=== PATIENT | male | born 1940 | race Caucasian/White ===

== ENCOUNTER 2017-03-19 04:00 | Inpatient (IN) ==
--- NOTE | 2017-03-18 10:48 | EKG Report ---
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
[2017-03-18 10:56] LABS: Apearance,Urine CLEAR (Clear); Bilirubin,Urine Negative (Negative); Blood, Urine Negative (Negative); Glucose,Urine (UA) Negative (Negative); Ketones,Urine Negative (Negative); Mucus,Urine Occasional /LPF (Occasional); Nitrite,Urine Negative (Negative); Protein,Urine Negative; RBC,Urine <1 /HPF (0-4); Urine Color Yellow (Yellow); Urine Specific Gravity 1.016 (1.001-1.035); Urine Urobilinogen < 2.0 EU/DL (0.2-1.0); WBC,Urine 1 /HPF (0-6)
[2017-03-18 10:57] LABS: Basophils # 0.1 10*3/uL (0.0-0.2); Basophils % 0.8 % (0.0-0.8); Eosinophils # 0.2 10*3/uL (0.0-0.87); Eosinophils % 2.3 % (0.00-10.9); Hematocrit 40.1 VOL% (42.0-52.0); Hemoglobin 13.2 GM/DL (14.0-18.0); Immature Granulocytes % 0.3 %; Immature Granulocytes Absolute 0.02 #; Lymphocytes # 1.4 10*3/uL (1.4-4.0); Lymphocytes % 21.9 % (21.2-54.2); Mean Corpuscular HGB Conc 32.9 GM/DL (32-36); Mean Corpuscular Hemoglobin 30 PG (27-34); Mean Corpuscular Volume 89.9 FL (87-102); Mean Platelet Volume 10.1 FL (9.6-12.0); Monocytes # 0.7 10*3/uL (0.11-0.8); Monocytes % 11.3 % (1.7-12.7); Neutrophils # 4.2 10*3/uL (1.4-7.4); Neutrophils % 63.4 % (38.7-73.9); Platelet Count 171 T/CUMM (130-400); Red Blood Count 4.46 MC/CUMM (3.8-5.5); Red Cell Distribution Width 13.5 % (9.3-17.3); White Blood Count 6.6 T/CUMM (4-12)
[2017-03-18 11:25] LABS: PT Patient Result 10.7 SECS; Partial Thromboplastin Time 27.8 SECS (0-40)
[2017-03-18 11:28] LABS: Magnesium 2.2 MG/DL (1.8-2.4); Osmolality,Calculated 284.3 MOS/KG (273-304); Potassium 4.7 MMOL/L (3.5-5.1)
[2017-03-21] MEDS ORDERED: ACETAMINOPHEN INJ 1,000 MG in PREMIX 1 EACH IV ONE (06:00)
[2017-03-21] MEDS ORDERED: BUPIVACAINE LIPOSOMAL 20 ML/266 MG VIAL INFILTRAT ONE (06:00)
[2017-03-21] MEDS ORDERED: CEFUROXIME INJ 1,500 MG in SODIUM CHLORIDE 0.9% 100 ML IV ONE (06:00)
[2017-03-21] MEDS ORDERED: TISSUE ADHESIVE 1 EACH APPLICATOR TOP ONE (06:32)
[2017-03-21] MEDS ORDERED: ACETAMINOPHEN 1,000 MG/100 ML VIAL IV ONE (06:44)
[2017-03-21] MEDS ORDERED: CEFUROXIME 1,500 MG VIAL ONE (06:44)
[2017-03-21] MEDS ORDERED: SODIUM CHLORIDE 0.9% 100 ML IV ONE (06:45)
[2017-03-21] MEDS ORDERED: ETOMIDATE 20 MG/10 ML VIAL IV ONE (07:05)
[2017-03-21] MEDS ORDERED: FUROSEMIDE 20 MG/2 ML VIAL ONE (07:05)
[2017-03-21] MEDS ORDERED: ONDANSETRON 4 MG/2 ML VIAL ONE (07:05)
[2017-03-21] MEDS ORDERED: ROCURONIUM 100 MG/10 ML VIAL IV ONE (07:05)
[2017-03-21] MEDS ORDERED: PHENYLEPHRINE 1 MG/10 ML SYRINGE IV ONE (07:05)
[2017-03-21] MEDS ORDERED: CALCIUM CHLORIDE 1,000 MG/10 ML SYRINGE IV ONE (07:05)
[2017-03-21] MEDS ORDERED: SUGAMMADEX 200 MG/2 ML VIAL IV ONE ×2 (07:05→13:22)
[2017-03-21] MEDS ORDERED: LIDOCAINE 2% 5 ML VIAL ONE (07:05)
[2017-03-21] MEDS: LACTATED RINGERS 1,000 ML IV SCH (07:10)
[2017-03-21 08:38] LABS: Apearance,Urine Slightly Hazy (Clear); Bilirubin,Urine Negative (Negative); Blood, Urine Negative (Negative); Glucose,Urine (UA) Negative (Negative); Hyaline Casts,Urine 11 /LPF (0-3); Ketones,Urine Negative (Negative); Mucus,Urine Many /LPF (Occasional); Nitrite,Urine Negative (Negative); Protein,Urine Negative; RBC,Urine 1 /HPF (0-4); Urine Color Yellow (Yellow); Urine Specific Gravity 1.018 (1.001-1.035); Urine Urobilinogen < 2.0 EU/DL (0.2-1.0); WBC,Urine 2 /HPF (0-6)
[2017-03-21 12:36] LABS: ABG Base Excess -5.8 MMOL/L (-2.5-2.5); ABG HCO3 19.7 MMOL/L (20-26); ABG PCO2 55.6 MM HG (35-48); ABG PH 7.223 (7.35-7.45); ABG TCO2 20.5 MMOL/L (23-27); Glucose Heart Surgery 178 MG/DL (74-106); Hematocrit Heart Surgery 40.8 PERCENT (42-52); Hemoglobin Heart Surgery 13.3 G/DL (14.0-18.0); Potassium Heart/CVR 5.3 MMOL/L (3.5-5.1)
[2017-03-21] MEDS ORDERED: HYDROmorphone 2 MG/1 ML VIAL ONE (14:10)
[2017-03-21] MEDS: HYDROmorphone 2 MG/1 ML VIAL IV PRN ×3 (14:10→14:20)
[2017-03-21] MEDS ORDERED: ONDANSETRON 4 MG/2 ML VIAL IV PRN ×2 (14:14→14:19)
[2017-03-21] MEDS ORDERED: DESFLURANE 1 UNIT/15 MINUTE INH ONE (14:21)
[2017-03-21] MEDS ORDERED: MIDAZOLAM 2 MG/2 ML VIAL ONE (14:21)
[2017-03-21] MEDS ORDERED: fentaNYL 100 MCG/2 ML VIAL ONE (14:22)
[2017-03-21] MEDS ORDERED: SODIUM CHLORIDE 0.9% 1,000 ML IV ONE (14:22)
[2017-03-21] MEDS ORDERED: LACTATED RINGERS 2,000 ML IV ONE (14:22)
[2017-03-21] MEDS ORDERED: LACTATED RINGERS 1,000 ML IV SCH (14:30)
[2017-03-21] MEDS ORDERED: hydrALAZINE 20 MG/1 ML VIAL ONE (14:44)
[2017-03-21] MEDS ORDERED: hydrALAZINE 20 MG/1 ML VIAL IV ONE (14:46)
--- NOTE | 2017-03-21 14:47 | XRay Report ---
History: Postop thoracotomy Date: 03/21/2017 Study: Chest x-ray AP portable Comparison exam: March 04, 2017 The right IJ central line is well-positioned with its tip of the superior vena cava. There has been partial pneumonectomy on the left. There are 2 chest tubes overlie the left hemithorax. There is some surgery related pneumothorax on the left, as the left remaining lung has not yet fully expanded. There is some minor atelectatic change in the lung bases. There is no gross pleural effusion. There is cardiomegaly. The mediastinal contours are stable. A left scleral indwelling transvenous pacemaker is in stable satisfactory position. Impression: Postthoracotomy changes in the left hemithorax. The supporting tubes are in generally satisfactory position. There is some mild bibasilar postoperative atelectasis PROCEDURE INTERPRETED AT [facility] DEPARTMENT OF RADIOLOGY Final Report Signed by: Dr. Iris Medina
--- NOTE | 2017-03-21 14:57 | Operative Note ---
Date of procedure: 03/21/17 Pre-op diagnosis: Left upper lobe lung cancer Post-op diagnosis: same Procedure: Procedure: 1. Bronchoscopy 2. Mediastinoscopy with multilevel mediastinal lymph node biopsy 3. left video-assisted thoracoscopy 4. Injection of liposomal bupivacaine with intercostal nerve blocks levels 2, 3 , 4, 5, 6, 7, 8 5. left upper lobectomy 6. Complete mediastinal lymph node dissection 7. Conversion to open thoracotomy to complete the left upper lobectomy Findings: Medial sinoscopy revealed some calcified lymph nodes however frozen section did not show any malignant tissue in the lymph nodes. On doing the video-assisted thoracoscopy he had extremely calcified level 10 lymph nodes, level 11 lymph nodes, his hilum was deeply stuck into the mediastinum. During the surgery I felt it safer to convert to open to complete the surgery. This is due to a severely calcified lymph nodes. Please add modifier for complexity due to calcified mediastinal lymph nodes and severe adhesions of the hilum. Details of the procedure: The patient was brought into the OR placed supine on the OR table and general endotracheal anesthesia was induced without without any problems. Antibiotics were given. Time out was performed The neck and chest were prepped and draped in the usual sterile fashion. An incision was made 2 cm above the sternal. Dissection was carried down to the trachea and the pretracheal. Plane was entered with the scope. Dissection was done bluntly. After that the main bronchi were identified. Large biopsies were taken off level IVR, level VII, level IVL lymph nodes and they were sent to frozen section Hemostasis was achieved. The midline was approximated using single Vicryl stitch. Platysma was approximated using interrupted Vicryl stitches. I then proceeded with closing the skin with Monocryl. Report from pathologist that was negative for malignancy of the lung. At this point I decided to proceed with left video-assisted thoracoscopy to do the left upper lobectomy and medicinal if dissection. The patient was turned and the chest was prepared and draped in sterile fashion. An incision was made over the eighth rib and space was entered bluntly. Survey of the chest didn't show any obvious lesions other than the left upper lobe. He had extremely calcified mediastinal lymph nodes with a large matted lymph node in the level 10 L position. The inferior pulmonary ligament was taken down and dissected the hilum all around the lung. I teased off the lung of the matted calcified lymph nodes in level 10 L. The left superior pulmonary vein was identified and encircled with silk stitch. Was created and I used a white load stapler to resect the pulmonary vein. Care was taken to preserve the the left lower lobe vein. After that we proceeded with identifying the apical anterior artery. Dissection was carried around the artery. Of note there was severely adhesed large and solid lymph nodes. After circling the artery successfully I dissected it using white load. After that I found it very difficult to continue on finished the fissure above the PA due to the severely calcified lymph nodes in the multiple small branches supplying the upper lobe. The hilum at this point was deeply stuck into the mediastinum. At this point I converted to open thoracotomy by extending the utility incision. There was some bleeding from 1 of the branches of the ongoing PDA which required a 4-0 Prolene stitch to control it. That was immediately behind level 11 lymph node that was severely calcified. After that I continue to identify the fissure. It was incomplete. After completely identifying the fissure then identified the bronchus. I encircled the bronchus and purple load was used. I then completed the fissure however again it was difficult to completely resect of the hilum due to the severely calcified lymph nodes. I took samples also of level 5, and level 6 lymph nodes.. There was collected and the would be sent for permanent pathology. The patient tolerated the procedure well hemostasis was achieved and 2 chest tubes were inserted without any problems. The left lower lobes were inflated successfully without any problems. I I so no leak from the bronchial stump on the testing.. The deep layer was closed using running PDS, subcutaneous tissues closed using PDS, skin closed using caroline. The patient was extubated and moved to PACU in good condition. Anesthesia: GETA Surgeon / Physician: Flory Salgado Estimated blood loss: other (1999) Specimens: other (Left upper lobe, level 4L, level 4R, level 7, 5, 6, 11, 10 lymph nodes) Condition: stable Disposition: ICU Results - Labs CBC & BMP: 03/18/17 10:35 03/18/17 10:35 Discharge Plan - Discharge Medications No Action Atorvastatin Calcium [Lipitor] 40 mg PO BEDTIME Thyroid [Debary Thyroid] 60 mg PO DAILY Aspirin [Children's Aspirin] 81 mg PO BEDTIME Silodosin [Rapaflo] 8 mg PO BEDTIME Memantine [Namenda] 10 mg PO BID Meloxicam 7.5 mg PO BID Donepezil HCl 5 mg PO DAILY NIFEdipine XL TAB [Procardia Xl] 30 mg PO BEDTIME Umeclidinium Brm/Vilanterol Tr [Anoro Ellipta] 1 puff INH DAILY Irbesartan [Avapro] 150 mg PO BEDTIME - Follow Up or Referral - Forms/Instructions
[2017-03-21] MEDS ORDERED: LABETALOL 20 MG/4 ML SYRINGE IV ONE ×3 (15:15→15:30)
[2017-03-21] MEDS ORDERED: KETOROLAC 15 MG/1 ML VIAL IV SCH (15:30)
[2017-03-21 15:48] LABS: Basophils % 0.2 % (0.0-0.8); Eosinophils % 0.1 % (0.00-10.9); Hematocrit 36.1 VOL% (42.0-52.0); Immature Granulocytes % 0.3 %; Immature Granulocytes Absolute 0.03 #; Lymphocytes # 1.7 10*3/uL (1.4-4.0); Mean Corpuscular HGB Conc 33.2 GM/DL (32-36); Mean Corpuscular Hemoglobin 30 PG (27-34); Mean Corpuscular Volume 90.9 FL (87-102); Mean Platelet Volume 9.7 FL (9.6-12.0); Monocytes % 8.9 % (1.7-12.7); Neutrophils # 8.3 10*3/uL (1.4-7.4); Neutrophils % 75.5 % (38.7-73.9); Platelet Count 143 T/CUMM (130-400); Red Blood Count 3.97 MC/CUMM (3.8-5.5); Red Cell Distribution Width 13.8 % (9.3-17.3)
[2017-03-21] MEDS ORDERED: POTASSIUM CHLORIDE INJ 10 MEQ in SODIUM CHLORIDE 0.45% 1,000 ML IV SCH (16:00)
[2017-03-21 16:15] LABS: Calcium 8.7 MG/DL (8.5-10.1); Osmolality,Calculated 287.3 MOS/KG (273-304)
[2017-03-21] MEDS ORDERED: MORPHINE 2 MG/1 ML SYRINGE IV ONE (17:25)
[2017-03-21] MEDS ORDERED: LACTATED RINGERS 500 ML IV ONE (18:38)
[2017-03-21] MEDS ORDERED: METOPROLOL TARTRATE 5 MG/5 ML VIAL IV ONE (19:33)
[2017-03-21 19:38] LABS: Platelet Estimate Normal; Poikilocytosis Slight
[2017-03-21 19:39] LABS: Burr Cells Few
--- NOTE | 2017-03-21 20:00 | XRay Report ---
History: Chest tube placement Date: 03/21/2017 at 7:25 PM Study: Chest x-ray AP portable Comparison exam: 03/21/2017 at 2:12 PM The left chest tubes and right IJ central venous line remain in satisfactory position. The previous pneumothorax on the left is no longer seen. There is minimal subsegmental atelectasis in the lung bases, though this is improved. There is stable cardiomegaly. The mediastinal contours are unchanged. A left subclavian transvenous pacemaker is stable. Osseous structures are similar. There is mild soft tissue emphysema of the left chest wall. Impression: The previous pneumothorax on the left has resolved. Interval improved aeration in the lung bases. No adverse interval changes PROCEDURE INTERPRETED AT [facility] DEPARTMENT OF RADIOLOGY Final Report Signed by: Dr. Iris Medina
[2017-03-21] MEDS: LABETALOL 20 MG/4 ML SYRINGE IV PRN (20:23)
[2017-03-21] MEDS: SODIUM CHLORIDE 0.45% 1,000 ML IV SCH (20:27)
[2017-03-21] MEDS: ACETAMINOPHEN INJ 1,000 MG in PREMIX 1 EACH IV SCH (20:28)
[2017-03-21] MEDS: METOPROLOL TARTRATE 5 MG/5 ML VIAL IV SCH (20:29)
[2017-03-21 21:36] LABS: ABG Base Excess -1.4 MMOL/L (-2.5-2.5); ABG HCO3 23.2 MMOL/L (20-26); ABG Oxygen Saturation 96.9 % (95-100); ABG PCO2 46.4 MM HG (35-48); ABG PH 7.334 (7.35-7.45); ABG PO2 90.3 MM HG (80-95); ABG TCO2 22.4 MMOL/L (23-27)
[2017-03-21 21:40] LABS: Basophils % 0.3 % (0.0-0.8); Eosinophils % 0.1 % (0.00-10.9); Hematocrit 32.3 VOL% (42.0-52.0); Hemoglobin 10.9 GM/DL (14.0-18.0); Immature Granulocytes % 0.4 %; Immature Granulocytes Absolute 0.03 #; Lymphocytes # 0.9 10*3/uL (1.4-4.0); Lymphocytes % 11.1 % (21.2-54.2); Mean Corpuscular HGB Conc 33.7 GM/DL (32-36); Mean Corpuscular Hemoglobin 30 PG (27-34); Mean Corpuscular Volume 89.7 FL (87-102); Monocytes # 0.9 10*3/uL (0.11-0.8); Monocytes % 11.2 % (1.7-12.7); Neutrophils # 5.9 10*3/uL (1.4-7.4); Neutrophils % 76.9 % (38.7-73.9); Platelet Count 126 T/CUMM (130-400); Red Cell Distribution Width 13.9 % (9.3-17.3); White Blood Count 7.7 T/CUMM (4-12)
[2017-03-21] MEDS: CEFUROXIME INJ 1,500 MG in SODIUM CHLORIDE 0.9% 100 ML IV SCH (22:22)
[2017-03-21 23:14] LABS: Platelet Estimate Adequate
[2017-03-22] MEDS: METOPROLOL TARTRATE 5 MG/5 ML VIAL IV SCH ×6 (00:41→21:21)
[2017-03-22] MEDS ORDERED: ALBUTEROL/IPRATROPIUM 3 ML NEB RESP TX PRN (01:40)
[2017-03-22] MEDS: ACETAMINOPHEN INJ 1,000 MG in PREMIX 1 EACH IV SCH (01:43)
[2017-03-22] MEDS: LABETALOL 20 MG/4 ML SYRINGE IV PRN ×2 (02:50→03:45)
[2017-03-22 04:58] LABS: Basophils % 0.4 % (0.0-0.8); Eosinophils % 0.3 % (0.00-10.9); Hematocrit 31.1 VOL% (42.0-52.0); Hemoglobin 10.8 GM/DL (14.0-18.0); Immature Granulocytes % 0.3 %; Immature Granulocytes Absolute 0.02 #; Lymphocytes % 12.9 % (21.2-54.2); Mean Corpuscular HGB Conc 34.7 GM/DL (32-36); Mean Corpuscular Hemoglobin 31 PG (27-34); Mean Corpuscular Volume 88.9 FL (87-102); Mean Platelet Volume 11.7 FL (9.6-12.0); Monocytes # 0.7 10*3/uL (0.11-0.8); Monocytes % 9.1 % (1.7-12.7); Neutrophils # 5.9 10*3/uL (1.4-7.4); Platelet Count 148 T/CUMM (130-400); Red Cell Distribution Width 14.2 % (9.3-17.3); White Blood Count 7.6 T/CUMM (4-12)
[2017-03-22 05:24] LABS: Calcium 8.2 MG/DL (8.5-10.1); Osmolality,Calculated 281.7 MOS/KG (273-304)
[2017-03-22 05:27] LABS: Hypochromasia 1+; Ovalocytes Slight; Platelet Estimate Normal
[2017-03-22 05:28] LABS: Potassium 6.2 MMOL/L (3.5-5.1)
[2017-03-22] MEDS ORDERED: FUROSEMIDE 40 MG/4 ML VIAL IV ONE ×2 (05:38→18:37)
[2017-03-22] MEDS: MORPHINE 2 MG/1 ML SYRINGE IV PRN ×2 (05:49→12:18)
[2017-03-22] MEDS ORDERED: traMADol 50 MG TABLET PO PRN (06:00)
[2017-03-22] MEDS: SODIUM CHLORIDE 0.45% 1,000 ML IV SCH (06:38)
[2017-03-22] MEDS ORDERED: LABETALOL 20 MG/4 ML SYRINGE IV ONE (06:59)
[2017-03-22] MEDS: LACTATED RINGERS 1,000 ML IV SCH (07:48)
[2017-03-22] MEDS: ACETAMINOPHEN 500 MG TABLET PO SCH ×3 (07:54→19:54)
--- NOTE | 2017-03-22 08:20 | XRay Report ---
XR chest 1V portable Indication: Chest tubes, thoracic surgery Comparison: 21 March 2017 Findings: The heart and mediastinum are stable in size and configuration. Pacemaker device is unchanged in position. The lines and tubes are unchanged in position. The pulmonary vascularity is normal in caliber. Left lower lung density is similar to previous exam. No other lung infiltrates, effusions, pneumothorax or other abnormality is demonstrated. Impression: No significant change PROCEDURE INTERPRETED AT [facility] DEPARTMENT OF RADIOLOGY Final Report Signed by: Dr. Francisco Moscoso
[2017-03-22] MEDS: PANTOPRAZOLE 40 MG VIAL IV SCH (08:59)
[2017-03-22] MEDS: GABAPENTIN 100 MG CAPSULE PO SCH ×3 (08:59→21:30)
[2017-03-22] MEDS: CELECOXIB 200 MG CAPSULE PO SCH ×2 (08:59→21:29)
[2017-03-22] MEDS ORDERED: CEFUROXIME INJ 1,500 MG in SODIUM CHLORIDE 0.9% 100 ML IV SCH (12:30)
[2017-03-22] MEDS ORDERED: NALOXONE 0.4 MG/ML VIAL IV PRN (12:38)
[2017-03-22] MEDS: CEFUROXIME INJ 1,500 MG in SODIUM CHLORIDE 0.9% 100 ML IV SCH (12:46)
[2017-03-22] MEDS ORDERED: HYDROmorphone PCA 30 MG/30 ML SYRINGE IV SCH (13:00)
--- NOTE | 2017-03-22 16:03 | Hospitalist Consult Note ---
<Geo Olivares - Last Filed: 03/22/17 16:28> Assessment and Plan - Time spent with patient Time spent with patient: Greater than 30 minutes (1) Status post lobectomy of lung Status: Acute Current Visit: Yes (2) Hypertension Status: Acute Current Visit: Yes (3) Shortness of breath Status: Acute Current Visit: No (4) Mass of upper lobe of left lung Problem details: enlarging soft tissue lesion most likely malignancy Status: Acute Current Visit: No (5) Tobacco use Status: Chronic Current Visit: No History of Present Illness - Data of Consult Patient: new to practice Consult date: 03/22/17 Requesting Physician: Flory Salgado Primary care physician: Augustin Barba III. - Consult Narrative Reason for consult: Hypertension management History of present illness: Mr. Gee is a 77 year old white male with a past medical history significant for hypertension, obstructive sleep apnea, hypothyroidism, tobacco use, left upper lobe lung cancer with known metastatic disease. Patient is admitted to Dr. Flory Salgado for a left video-assisted thoracoscopy with left upper lobectomy and complete mediastinal lymph node dissection. Apparently the VAT was converted to an open thoracotomy to complete the left upper lobectomy. Large biopsies of the lymph nodes were sent to frozen section hemostasis. Report from pathologist was negative for malignancy of the lung. We were consulted to assist with management of the patient's hypertension. Patient was seen in his room in ICU 118 resting comfortably in the bedside chair. Patient does have a bit of dementia and was found to repeat himself a few times during our conversation. He denies any pain at this time. He further denies headache , nausea or vomiting, abdominal pain, lower extremity edema. He confirms mild shortness of breath. Patient does have [address] draining serosanguineous fluid. His vital signs are noted to be stable with mildly elevated blood pressure at 158/53. Patient does take Procardia at home. This case been discussed with Dr. Garcia, consulting physician, and we are happy to follow along with the care of this patient. Thank you for the consult. CC: Flory Salgado - Home Medications and Allergies Home Medications: Home Medications Medication Instructions Recorded Confirmed Type Aspirin [Children's Aspirin] 81 mg PO BEDTIME 01/06/15 03/21/17 History Atorvastatin Calcium [Lipitor] 40 mg PO BEDTIME 01/06/15 03/21/17 History Silodosin [Rapaflo] 8 mg PO BEDTIME 01/06/15 03/21/17 History Thyroid [[place] Thyroid] 60 mg PO DAILY 01/06/15 03/21/17 History Donepezil HCl 5 mg PO DAILY 01/15/17 03/21/17 History Meloxicam 7.5 mg PO BID 01/15/17 03/21/17 History Memantine [Namenda] 10 mg PO BID 01/15/17 03/21/17 History NIFEdipine XL TAB [Procardia Xl] 30 mg PO BEDTIME 01/16/17 03/21/17 History Irbesartan [Avapro] 150 mg PO BEDTIME 03/18/17 03/21/17 History Umeclidinium Brm/Vilanterol Tr 1 puff INH DAILY 03/18/17 03/21/17 History [Anoro Ellipta] Allergies/Adverse Reactions: Allergies Allergy/AdvReac Type Severity Reaction Status Date / Time No Known Allergies Allergy Verified 03/21/17 06:20 Medical,Surgical,& Family Hx - Medical History Cardio: History of: Aneurysm (AAA), Hypertension (MEDICATION), Pacemaker (January) Comment Only: Cardiovascular Problems (DR MCBRIDE.) Neurology: No history of: Seizures HEENT: History of: Ear Problem (RT EAR LOSS.), Eye Problem (READING GLASSES), Dental Problems (FULL SET.) Endocrine: History of: Dyslipidemia, Thyroid Disorder (MEDICATION) Respiratory: History of: Obstructive Sleep Apnea (PT IS NOT USING CPAP.), Lung Cancer (UPPER LEFT.) No history of: Respiratory Problems (FLU VAC- NO PNEU VAC- ?) Genitourinary: History of: Prostate Problems (BPH) Other: History of: Cancer (LEFT LUNG CA.) - Surgical History Cardiac Surgeries: Sugical HX of: Cardiac Catheterization (2017), Carotid Endarterectomy (BILATERAL DR BRADSHAW. AAA REPAIR.) HEENT Surgeries: Surgical HX of: Carotid Endarterectomy (BILATERAL DR BRADSHAW. AAA REPAIR.), Eye Surgery (BILATERAL CATARACT SURGERY.) Abdominal Surgeries: Surgical HX of: Hernia Repair (DOUBLE HERNIA.) - Family History Family History: Reports;: Family Hypertension (dad) Denies;: Family Anesthesia Reaction, Family Cancer, Family Diabetes, Family Heart Disease, Family Psychiatric Problems, Family Stroke - Social History Smoking Status: Former smoker Frequency of Alcohol Use: Rarely Type of Drug Use: Unknown Marital Status: Lives With:: Spouse Functional capacity: independent ambulation 12 point system: reviewed and no additional remarkable complaints except as stated Exam - Constitutional Vitals: Period Temp Pulse Resp BP Sys/Potter Pulse Ox Last 24 Hr 97 F 60-65 10-29 112-189/43-98 94-99 Exam: General appearance: overweight, no acute distress - Head Head exam: Present: normocephalic, atraumatic - Eye Eye exam: Present: EOMI. Absent: conjunctival injection, nystagmus Pupils: Present: ERA, normal accommodation - ENT ENT exam: Present: normal exam, normal external ear exam - Neck Neck exam: Present: normal inspection. Absent: lymphadenopathy, tenderness, thyromegaly - Respiratory Respiratory exam: Present: Bilateral rales, rhonchi, wheezing. - Cardiovascular Cardiovascular exam: Present: regular rate and rhythm. Absent: carotid bruit, gallop, rubs - GI/Abdominal GI/Abdominal exam: Present: normal bowel sounds. Absent: ascites, distended, mass - Extremities Exam Extremities exam: Present: normal inspection, normal capillary refill. Absent: edema - Back Exam Back exam: Absent: CVA tenderness (L), CVA tenderness (R) - Neurological Exam Neurological exam: Present: alert, oriented X3, CN II-XII intact, reflexes normal - Psychiatric Psychiatric exam: Present: normal affect, normal mood - Skin Skin exam: Present: normal color, warm, dry Results - Labs CBC & BMP: 03/22/17 04:35 03/22/17 05:42 Lab Results: I have reviewed the past 24 hour labs - Diagnostic Findings Procedure: Chest x-ray: image reviewed by me, report reviewed by me Quality Measures - VTE Contraindication to Pharmacological VTE Prophylaxis: Active Bleeding <Grzegorz Garcia - Last Filed: 03/22/17 17:37> History of Present Illness - Consult Narrative History of present illness: Patient seen and examined independently of SILVIA Olivares, agree with history, assessment and plan as documented. Hospitalist consulted for uncontrolled hypertension. Agree with restarting his home procardia. It is long acting so might take some time before we see its effect. Will also start hydralazine prn. We will continue to follow. CC: Flory Salgado Exam - Constitutional Vitals: Period Temp Pulse Resp BP Sys/Potter Pulse Ox Last 24 Hr 97 F 60-65 10-29 115-189/43-98 94-99 Results - Labs CBC & BMP: 03/22/17 04:35 03/22/17 05:42
[2017-03-22] MEDS ORDERED: hydrALAZINE 20 MG/1 ML VIAL IV PRN (17:30)
[2017-03-23] MEDS: METOPROLOL TARTRATE 5 MG/5 ML VIAL IV SCH ×3 (01:07→08:32)
[2017-03-23] MEDS: ACETAMINOPHEN 500 MG TABLET PO SCH ×4 (01:19→21:45)
[2017-03-23 04:15] LABS: Calcium 8.3 MG/DL (8.5-10.1); Osmolality,Calculated 281.5 MOS/KG (273-304); Potassium 3.8 MMOL/L (3.5-5.1)
[2017-03-23 04:20] LABS: Basophils % 0.4 % (0.0-0.8); Eosinophils # 0.3 10*3/uL (0.0-0.87); Eosinophils % 2.9 % (0.00-10.9); Hematocrit 31.2 VOL% (42.0-52.0); Hemoglobin 10.7 GM/DL (14.0-18.0); Immature Granulocytes % 0.5 %; Immature Granulocytes Absolute 0.05 #; Lymphocytes # 1.1 10*3/uL (1.4-4.0); Lymphocytes % 9.9 % (21.2-54.2); Mean Corpuscular HGB Conc 34.3 GM/DL (32-36); Mean Corpuscular Hemoglobin 31 PG (27-34); Mean Corpuscular Volume 89.9 FL (87-102); Mean Platelet Volume 10.3 FL (9.6-12.0); Monocytes # 0.9 10*3/uL (0.11-0.8); Monocytes % 8.7 % (1.7-12.7); Neutrophils # 8.4 10*3/uL (1.4-7.4); Neutrophils % 77.6 % (38.7-73.9); Platelet Count 132 T/CUMM (130-400); Red Blood Count 3.47 MC/CUMM (3.8-5.5); Red Cell Distribution Width 13.7 % (9.3-17.3); White Blood Count 10.8 T/CUMM (4-12)
[2017-03-23 05:20] LABS: Eosinophils 1 % (0-10); Lymphocytes 19 % (20-55); Microcytosis 1+; Platelet Estimate Normal; Segmented Neutrophils 77 % (50-85); Total Cells Counted 100
[2017-03-23] MEDS: PANTOPRAZOLE 40 MG VIAL IV SCH (08:33)
[2017-03-23] MEDS: GABAPENTIN 100 MG CAPSULE PO SCH ×3 (08:33→21:45)
[2017-03-23] MEDS: CELECOXIB 200 MG CAPSULE PO SCH ×2 (08:33→21:45)
[2017-03-23] MEDS: MORPHINE 2 MG/1 ML SYRINGE IV PRN (09:58)
--- NOTE | 2017-03-23 10:29 | XRay Report ---
2 view chest. Indication: Thoracic surgery. Comparison: March 22, 2017. 2 chest tubes are in place on the left. There is improved aeration of the left. There is a small left pneumothorax, measuring 13 mm at the apex. Calcified lymph nodes are seen in the left hilum. The right lung is clear. Central venous catheter is in satisfactory position. Cardiac hardware is in satisfactory position. Impression: There is a visible pneumothorax in the left lung apex, which is slightly more prominent than seen previously. However, the mid and lower lung field on the left show interval improvement in aeration. Chest tubes are unchanged in position. PROCEDURE INTERPRETED AT [facility] DEPARTMENT OF RADIOLOGY Final Report Signed by: Dr. Anay Dickson
--- NOTE | 2017-03-23 12:10 | Cardiothoracic Progress Note ---
Assessment and Plan - Time spent with patient Time spent with patient: Greater than 30 minutes (1) Mass of upper lobe of left lung Problem details: enlarging soft tissue lesion most likely malignancy Status: Acute Assessment and plan: Postoperative day 2 status post left upper lobectomy with mediastinal lymph node dissection. The patient has been doing very well. His pressure is much better controlled. His pain is well controlled as well. Transferred to telemetry. DC Feng. Give Lasix IV Lasix 40 mg once. Chest tubes to waterseal. Ambulate with physical therapy. Current Visit: No Exam (Progress Note) - Constitutional Vitals: Period Temp Pulse Resp BP Sys/Potter Pulse Ox Last 24 Hr 97.9 F-98.5 F 60-71 12-23 119-186/43-74 93-99 Result/EKG - Labs CBC & BMP: 03/23/17 03:36 03/23/17 03:36 Labs: Laboratory Results - last 24 hr 03/21/17 03/23/17 03/23/17 06:15 03:36 03:36 WBC 10.8 D RBC 3.47 L Hgb 10.7 L Hct 31.2 L MCV 89.9 MCH 31 MCHC 34.3 RDW 13.7 Plt Count 132 MPV 10.3 Neut % (Auto) 77.6 H Lymph % (Auto) 9.9 L [place] % (Auto) 8.7 Eos % (Auto) 2.9 Baso % (Auto) 0.4 Neut # (Auto) 8.4 H Lymph # (Auto) 1.1 L [place] # (Auto) 0.9 H Eos # (Auto) 0.3 Baso # (Auto) 0.0 Total Counted 100 Immature Gran % 0.5 Nucleated RBC % 0.0 Immature Gran # 0.05 Segmented Neutrophils 77 Lymphocytes 19 L Monocytes 2 Eosinophils 1 Basophils 1.0 H Nucleated RBCs # 0.00 Platelet Estimate Normal Immature Plt Fraction 0.0 Microcytosis 1+ Sodium 139 Potassium 3.8 Chloride 103 Carbon Dioxide 34 H Anion Gap 5.8 BUN 24 H Creatinine 1.10 GFR Calculation 76 BUN/Creatinine Ratio 21.00 H Glucose 109 H Calculated Osmolality 281.5 Calcium 8.3 L Blood Type O POSITIVE Antibody Screen Negative Crossmatch See Detail Quality Measures - VTE Contraindication to Pharmacological VTE Prophylaxis: Active Bleeding
[2017-03-23] MEDS: DONEPEZIL 5 MG TABLET PO SCH (12:52)
--- NOTE | 2017-03-23 18:07 | Hospitalist Progress Note ---
Assessment and Plan (1) Hypertension Status: Acute Assessment and plan: Uncontrolled, improving Continue procardia Current Visit: Yes Hospitalist: Subjective Interval history: No acute events overnight. Blood pressure is improving. Will continue to monitor. Exam - Constitutional Vitals: Period Temp Pulse Resp BP Sys/Potter Pulse Ox Last 24 Hr 97.9 F-98.7 F 60-78 12-23 119-170/56-84 93-98 General appearance: normal weight - Head Head exam: Present: normocephalic, atraumatic - Eye Eye exam: Present: EOMI Pupils: Present: ERA - ENT ENT exam: Present: normal exam - Neck Neck exam: Present: normal inspection - Respiratory Respiratory exam: Present: clear to auscultation bilaterally. Absent: wheezes - Cardiovascular Cardiovascular exam: Present: regular rate and rhythm - GI/Abdominal GI/Abdominal exam: Present: normal bowel sounds, soft. Absent: tenderness, rebound - Extremities Exam Extremities exam: Present: normal inspection - Back Exam Back exam: Present: normal inspection - Neurological Exam Neurological exam: Present: alert - Psychiatric Psychiatric exam: Present: normal affect, normal mood - Skin Skin exam: Present: warm, intact Results - Labs CBC & BMP: 03/23/17 03:36 03/23/17 03:36 Quality Measures - VTE Contraindication to Pharmacological VTE Prophylaxis: Active Bleeding
[2017-03-23] MEDS: IRBESARTAN 150 MG TABLET PO SCH (21:44)
[2017-03-23] MEDS: SILODOSIN 8 MG CAPSULE PO SCH (21:44)
[2017-03-23] MEDS: ATORVASTATIN 40 MG TABLET PO SCH (21:45)
[2017-03-23] MEDS: MELOXICAM 7.5 MG TABLET PO SCH (21:45)
[2017-03-23] MEDS: ASPIRIN CHEW 81 MG TABLET PO SCH (21:45)
[2017-03-23] MEDS: MEMANTINE 10 MG TABLET PO SCH (21:45)
[2017-03-24] MEDS: MORPHINE 2 MG/1 ML SYRINGE IV PRN (02:14)
[2017-03-24] MEDS: ACETAMINOPHEN 500 MG TABLET PO SCH ×4 (03:33→20:28)
[2017-03-24 06:18] LABS: Basophils % 0.3 % (0.0-0.8); Eosinophils # 0.2 10*3/uL (0.0-0.87); Eosinophils % 1.7 % (0.00-10.9); Hematocrit 31.4 VOL% (42.0-52.0); Hemoglobin 10.6 GM/DL (14.0-18.0); Immature Granulocytes % 0.5 %; Immature Granulocytes Absolute 0.05 #; Lymphocytes # 0.9 10*3/uL (1.4-4.0); Lymphocytes % 7.9 % (21.2-54.2); Mean Corpuscular HGB Conc 33.8 GM/DL (32-36); Mean Corpuscular Hemoglobin 31 PG (27-34); Mean Corpuscular Volume 90.2 FL (87-102); Mean Platelet Volume 10.6 FL (9.6-12.0); Monocytes # 0.8 10*3/uL (0.11-0.8); Monocytes % 7.3 % (1.7-12.7); Neutrophils % 82.3 % (38.7-73.9); Platelet Count 146 T/CUMM (130-400); Red Blood Count 3.48 MC/CUMM (3.8-5.5); Red Cell Distribution Width 13.7 % (9.3-17.3); White Blood Count 10.9 T/CUMM (4-12)
[2017-03-24 06:39] LABS: Calcium 8.5 MG/DL (8.5-10.1); Osmolality,Calculated 280.5 MOS/KG (273-304); Potassium 4.3 MMOL/L (3.5-5.1)
[2017-03-24] MEDS: GABAPENTIN 100 MG CAPSULE PO SCH ×3 (09:10→20:29)
[2017-03-24] MEDS: DONEPEZIL 5 MG TABLET PO SCH (09:10)
[2017-03-24] MEDS: THYROID 60 MG TABLET PO SCH (09:10)
[2017-03-24] MEDS: MEMANTINE 10 MG TABLET PO SCH ×2 (09:10→20:49)
[2017-03-24] MEDS: CELECOXIB 200 MG CAPSULE PO SCH ×2 (09:11→20:29)
[2017-03-24] MEDS: PANTOPRAZOLE 40 MG VIAL IV SCH (09:11)
[2017-03-24] MEDS: MELOXICAM 7.5 MG TABLET PO SCH ×2 (09:11→20:48)
[2017-03-24] MEDS: UMECLIDINIUM BRM INH SCH (09:32)
[2017-03-24] MEDS: VILANTEROL TR INH SCH (09:32)
--- NOTE | 2017-03-24 10:07 | XRay Report ---
Portable chest. Indication: Chest tube placement. Comparison: Yesterday's exam. The heart is enlarged. The right lung is clear. 2 chest tubes are in place on the left. A small amount of air in the pleural space is suspected, decreased from yesterday. There is also fluid in the pleural space. There is development of patchy areas of atelectasis or infiltrate in the left mid and lower lung field. There is an increase in the subcutaneous air. Cardiac hardware is in satisfactory position. Impression: There is volume loss and possible infiltrate involving the left lower lung field. Left-sided pneumothorax, decreased. Pleural fluid is also present. Increasing subcutaneous air in the left chest wall. PROCEDURE INTERPRETED AT [facility] DEPARTMENT OF RADIOLOGY Final Report Signed by: Dr. Anay Dickson
--- NOTE | 2017-03-24 13:28 | Cardiothoracic Progress Note ---
Assessment and Plan (1) Mass of upper lobe of left lung Problem details: enlarging soft tissue lesion most likely malignancy Status: Acute Assessment and plan: Postoperative day 3 status post left upper lobectomy with mediastinal lymph node dissection. The patient has been doing very well. Currently has no complaints however he had some pain yesterday last night which was relieved by as needed pain medicine. This is expected timeline for remission of pain as this at the time when the Exparel would be absorbed. He is much better today. He is ambulating well. He has a very very small air leak could be just left over there however I still prefer to leave the chest tube on Saturday. Most likely will be discharged to home later tomorrow after removal of the chest tubes. I also noticed that he is tachycardic today up to the 90s. His EKG showed sinus tachycardia if this continued I would likely start him on small dose beta-adeline. Current Visit: No Exam (Progress Note) - Constitutional Vitals: Period Temp Pulse Resp BP Sys/Potter Pulse Ox Last 24 Hr 97.8 F-99.3 F 72-96 18-20 112-158/56-84 88-96 Result/EKG - Labs CBC & BMP: 03/24/17 04:45 03/24/17 04:45 Labs: Laboratory Results - last 24 hr 03/24/17 03/24/17 03/24/17 04:45 04:45 11:58 WBC 10.9 RBC 3.48 L Hgb 10.6 L Hct 31.4 L MCV 90.2 MCH 31 MCHC 33.8 RDW 13.7 Plt Count 146 MPV 10.6 Neut % (Auto) 82.3 H Lymph % (Auto) 7.9 L [place] % (Auto) 7.3 Eos % (Auto) 1.7 Baso % (Auto) 0.3 Neut # (Auto) 9.0 H Lymph # (Auto) 0.9 L [place] # (Auto) 0.8 Eos # (Auto) 0.2 Baso # (Auto) 0.0 Immature Gran % 0.5 Nucleated RBC % 0.0 Immature Gran # 0.05 Nucleated RBCs # 0.00 Immature Plt Fraction 0.0 Sodium 139 Potassium 4.3 Chloride 105 Carbon Dioxide 30 Anion Gap 8.3 BUN 20 H Creatinine 0.90 GFR Calculation 94 BUN/Creatinine Ratio 22.00 H Glucose 120 H POC Glucose 144 H Calculated Osmolality 280.5 Calcium 8.5 Quality Measures - VTE Contraindication to Pharmacological VTE Prophylaxis: Active Bleeding
--- NOTE | 2017-03-24 13:37 | EKG Report ---
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
[2017-03-24] MEDS ORDERED: FUROSEMIDE 40 MG/4 ML VIAL IV ONE (14:04)
[2017-03-24] MEDS: METOPROLOL TARTRATE 25 MG TABLET PO SCH ×2 (14:23→20:29)
--- NOTE | 2017-03-24 16:31 | Hospitalist Progress Note ---
Assessment and Plan (1) Hypertension Status: Acute Assessment and plan: Uncontrolled, improving Continue procardia Current Visit: Yes Hospitalist: Subjective Interval history: No acute events overnight. Patient reports not sleeping well last night. His pain is controlled. Blood pressure is also better controlled. Agree with addition of beta adeline. Will now sign off. Please call with any questions. Exam - Constitutional Vitals: Period Temp Pulse Resp BP Sys/Potter Pulse Ox Last 24 Hr 97.8 F-99.3 F 83-96 18-20 112-158/56-74 88-96 General appearance: normal weight - Head Head exam: Present: normocephalic, atraumatic - Eye Eye exam: Present: EOMI Pupils: Present: ERA - ENT ENT exam: Present: normal exam - Neck Neck exam: Present: normal inspection - Respiratory Respiratory exam: Present: clear to auscultation bilaterally. Absent: wheezes - Cardiovascular Cardiovascular exam: Present: regular rate and rhythm - GI/Abdominal GI/Abdominal exam: Present: normal bowel sounds, soft. Absent: tenderness, rebound - Extremities Exam Extremities exam: Present: normal inspection - Back Exam Back exam: Present: normal inspection - Neurological Exam Neurological exam: Present: alert, oriented X3 - Psychiatric Psychiatric exam: Present: normal affect, normal mood - Skin Skin exam: Present: warm, intact Results - Labs CBC & BMP: 03/24/17 04:45 03/24/17 04:45 Quality Measures - VTE Contraindication to Pharmacological VTE Prophylaxis: Active Bleeding
[2017-03-24] MEDS: ASPIRIN CHEW 81 MG TABLET PO SCH (20:28)
[2017-03-24] MEDS: ATORVASTATIN 40 MG TABLET PO SCH (20:28)
[2017-03-24] MEDS: SILODOSIN 8 MG CAPSULE PO SCH (20:29)
[2017-03-24] MEDS: IRBESARTAN 150 MG TABLET PO SCH (20:29)
[2017-03-25] MEDS: ACETAMINOPHEN 500 MG TABLET PO SCH ×4 (02:14→21:43)
[2017-03-25] MEDS: MORPHINE 2 MG/1 ML SYRINGE IV PRN (05:36)
[2017-03-25 06:06] LABS: Basophils # 0.1 10*3/uL (0.0-0.2); Basophils % 0.5 % (0.0-0.8); Eosinophils # 0.5 10*3/uL (0.0-0.87); Eosinophils % 4.7 % (0.00-10.9); Hematocrit 32.6 VOL% (42.0-52.0); Hemoglobin 10.9 GM/DL (14.0-18.0); Immature Granulocytes % 0.4 %; Immature Granulocytes Absolute 0.04 #; Lymphocytes # 1.6 10*3/uL (1.4-4.0); Lymphocytes % 16.4 % (21.2-54.2); Mean Corpuscular HGB Conc 33.4 GM/DL (32-36); Mean Corpuscular Hemoglobin 30 PG (27-34); Mean Corpuscular Volume 91.1 FL (87-102); Mean Platelet Volume 10.6 FL (9.6-12.0); Monocytes # 0.7 10*3/uL (0.11-0.8); Monocytes % 7.7 % (1.7-12.7); Neutrophils # 6.8 10*3/uL (1.4-7.4); Neutrophils % 70.3 % (38.7-73.9); Platelet Count 184 T/CUMM (130-400); Red Blood Count 3.58 MC/CUMM (3.8-5.5); Red Cell Distribution Width 13.5 % (9.3-17.3); White Blood Count 9.6 T/CUMM (4-12)
[2017-03-25 06:40] LABS: Calcium 8.3 MG/DL (8.5-10.1); Magnesium 2.5 MG/DL (1.8-2.4); Osmolality,Calculated 285.1 MOS/KG (273-304); Potassium 3.7 MMOL/L (3.5-5.1)
--- NOTE | 2017-03-25 08:53 | XRay Report ---
Exam: XR chest 1V Date: 03/25/2017 4:00 AM Indication: Left-sided pleural effusion follow-up thoracotomy tube Comparison: 03/24/2017 Technical: AP Findings: 2 left-sided thoracotomy tubes are present extending to the left apex with residual pneumothorax present. Surgical clips are present. Decreased subcutaneous air is present. The heart is shifted to the left with a cardiac pacing device are present. Low volume left effusion noted. Bony sclerosis present over the right humeral head suggests a small enchondroma Impression: 1. Small left-sided apical pneumothorax with low volume effusions with stable appearance of the 2 left-sided thoracotomy tubes. 2. Remainder of the findings are essentially unchanged PROCEDURE INTERPRETED AT [facility] DEPARTMENT OF RADIOLOGY Final Report Signed by: Dr. Teto Johnson
[2017-03-25] MEDS: METOPROLOL TARTRATE 25 MG TABLET PO SCH ×2 (09:40→21:43)
[2017-03-25] MEDS: MELOXICAM 7.5 MG TABLET PO SCH ×2 (09:40→21:43)
[2017-03-25] MEDS: THYROID 60 MG TABLET PO SCH (09:40)
[2017-03-25] MEDS: MEMANTINE 10 MG TABLET PO SCH ×2 (09:41→21:43)
[2017-03-25] MEDS: GABAPENTIN 100 MG CAPSULE PO SCH ×3 (09:41→21:44)
[2017-03-25] MEDS: CELECOXIB 200 MG CAPSULE PO SCH ×2 (09:41→21:43)
[2017-03-25] MEDS: VILANTEROL TR INH SCH (09:42)
[2017-03-25] MEDS: PANTOPRAZOLE 40 MG VIAL IV SCH (09:42)
[2017-03-25] MEDS: UMECLIDINIUM BRM INH SCH (09:42)
[2017-03-25] MEDS: DONEPEZIL 5 MG TABLET PO SCH (09:42)
--- NOTE | 2017-03-25 10:46 | XRay Report ---
Exam: XR chest 1V portable Indication: chest tube removal Comparison study: Prior chest radiograph dated 03/25/2017 at 0744 hours Findings: Postsurgical changes are noted within the left chest with surgical caroline overlying the left chest wall. The 2 left-sided chest tubes have been removed. Evaluation is limited due to leftward mediastinal shift and similar opacification of the left lower chest. A residual left pneumothorax is suspected but not well visualized. Right lung appears clear with no pneumothorax visualized. Cardiac silhouette is mildly enlarged with left-sided chest pacemaker, unchanged. Osseous structures appear similar to prior Impression: Post surgical changes with interval removal of the left-sided chest tubes. Evaluation is somewhat limited due to technical factors and a small left-sided pneumothorax is suspected but not well visualized. Continued close clinical and imaging follow-up is recommended. Left basilar opacities appear essentially unchanged and may represent atelectasis/effusion and/or underlying infiltrates. Right lung remains clear. PROCEDURE INTERPRETED AT [facility] DEPARTMENT OF RADIOLOGY Final Report Signed by: Osorio Stover
[2017-03-25] MEDS ORDERED: FUROSEMIDE 40 MG/4 ML VIAL IV ONE (13:43)
[2017-03-25] MEDS ORDERED: ACETYLCYSTEINE 20% 800 MG/4 ML VIAL RESP TX ONE (13:44)
--- NOTE | 2017-03-25 14:34 | Cardiothoracic Progress Note ---
Assessment and Plan (1) Mass of upper lobe of left lung Problem details: enlarging soft tissue lesion most likely malignancy Status: Acute Assessment and plan: Postoperative day 4 status post left upper lobectomy with mediastinal lymph node dissection. T patient had the pain episode this morning that was controlled by [place]. His chest tube output is minimal and I removed it. Chest x-ray today showing some atelectasis in his left lower lobe which I think is due to inability to clear secretions appropriately. He was encouraged on deep breathing and respiratory rehabilitation. I gave him Mucomyst, DuCarlos scheduled , IV Lasix. If the chest x-ray does not improve by tomorrow and if he becomes symptomatic I discussed with Dr. Mera to proceed with bronchoscopy under sedation for secretions. Current Visit: No Exam (Progress Note) - Constitutional Vitals: Period Temp Pulse Resp BP Sys/Potter Pulse Ox Last 24 Hr 97.3 F-98.3 F 60-96 18-20 118-147/57-93 92-98 Result/EKG - Labs CBC & BMP: 03/25/17 05:03 03/25/17 05:03 Labs: Laboratory Results - last 24 hr 03/25/17 03/25/17 05:03 05:03 WBC 9.6 RBC 3.58 L Hgb 10.9 L Hct 32.6 L MCV 91.1 MCH 30 MCHC 33.4 RDW 13.5 Plt Count 184 D MPV 10.6 Neut % (Auto) 70.3 Lymph % (Auto) 16.4 L [place] % (Auto) 7.7 Eos % (Auto) 4.7 Baso % (Auto) 0.5 Neut # (Auto) 6.8 Lymph # (Auto) 1.6 [place] # (Auto) 0.7 Eos # (Auto) 0.5 Baso # (Auto) 0.1 Immature Gran % 0.4 Nucleated RBC % 0.0 Immature Gran # 0.04 Nucleated RBCs # 0.00 Immature Plt Fraction 0.0 Sodium 142 Potassium 3.7 Chloride 104 Carbon Dioxide 29 Anion Gap 12.7 BUN 21 H Creatinine 0.80 GFR Calculation 96 BUN/Creatinine Ratio 26.00 H Glucose 96 Calculated Osmolality 285.1 Calcium 8.3 L Magnesium 2.5 H Quality Measures - VTE Contraindication to Pharmacological VTE Prophylaxis: Active Bleeding
[2017-03-25] MEDS: ALBUTEROL/IPRATROPIUM 3 ML NEB RESP TX SCH ×3 (14:53→23:41)
--- NOTE | 2017-03-25 17:16 | Pathology Report from [facility] ---
[facility] [place] ACCESSION # : [id number] PATIENT NAME : Sr. Gee James A. ORDERING DR : Flory Salgado MD CLINICAL HX: LT upper lobe lung CA POST-OP DX: Same SPECIMEN INFO: #1 4L #2 4R #3 7 #4 Level 5 #5 Node 6 #6 11L #7 Anterior 10L #8 Left upper lobe GROSS DESCRIPTION: #1 Received fresh for frozen section labeled CARI GEE, SR & #1 are hyperemic fragments of soft tissue measuring collectively 0.8 x 0.4 cm , submitted in cassette #1 for frozen section.#2 Received fresh for frozen section labeled CARI GEE, & #2 4R are two hyperemic fragments of aly tissue measuring 0.9 x 0.4 cm collectively submitted in cassette #2 for frozen section.#3 Received fresh for frozen section labeled CARI GEE, SR & #3 7 is a 1.1 x 0.6 cm hemorrhagic tissue fragment sectioned and submitted in cassette # 3 for frozen section.#4 Received in formalin labeled CARI GEE, SR #4 is a 1.5 x 1.0 cm mckeon aly tissue fragment sectioned and submitted in cassette #4.#5 Received in formalin labeled CARI GEE, SR #5 is a 0.5 x 0.3 cm black tissue fragment submitted in cassette #5.#6 Received in formalin labeled CARI GEE, SR #6 consists of a 1.0 x 0.8 cm yellow mckeon tissue fragment sectioned and submitted in cassette #6.#7 Received in formalin labeled CARI GEE, SR #7 is a 2.0 x 1.5 cm aggregate of brown aly tissue submitted in cassette #7.#8 Received in formalin labeled CARI GEE, #8 LT UPPER LOBE is a left upper lung lobe measuring 21.5 x 12.0 x 3.0 cm. The pleural surface is smooth and maroon mckeon. Sectioning reveals a 2.8 x 3.5 cm tumor mass grossly extending to the pleural surface and coming to within 5.0 cm of the proximal margin and within 2.0 cm of the adjacent stapled margin. No definite lymph nodes are identified. Sections submitted 8A-Bronchial and vascular margins, 8B-8D-Tumor and pleural surface, 8E-Stapled margin adjacent tumor. DIAGNOSIS FOR CARI GEE SR.: #1 #2 #3 #4 #5 #6 #7 #8 LUNG, LEFT UPPER LOBE, LOBECTOMY (Intact, 21.5 x 3.0 cm): TUMOR TYPE: Pulmonary adenocarcinoma. HISTOLOGIC GRADE: Moderately-differentiated. TUMOR SIZE: 3.5 x 2.8 cm. TUMOR SITE: LEELA. MARGINS: All margins uninvolved with carcinoma with nearest ( stapeled) margin = 20 mm. FOCALITY: Unifocal. VISCERAL PLEURAL INVASION: Present. LYMPHOVASCULAR INVASION: Present. TUMOR ASSOCIATED ATELECTASIS OR OBSTRUCTIVE PNEUMONITIS: Not present. DIRECT INVASION OF ADJACENT STRUCTURES: No adjacent structures present. TREATMENT EFFECT: No known presurgical therapy. LYMPH NODES: Number examined = 7; Number positive = 3 (level 5, 11L, [id number]). EXTRANODAL EXTENSION: Present. AJCC (2018) PATHOLOGIC STAGE IIIA([id number]). COLLECTED DATE: 03/21/2017 [facility] REPORT DATE: 03/25/2017 ELECTRONICALLY SIGNED BY: Lawanda Epps M.D. 03/25/2017 - 10:39:03 CLAUDIO
[2017-03-25] MEDS: IRBESARTAN 150 MG TABLET PO SCH (21:43)
[2017-03-25] MEDS: SILODOSIN 8 MG CAPSULE PO SCH (21:43)
[2017-03-25] MEDS: ASPIRIN CHEW 81 MG TABLET PO SCH (21:44)
[2017-03-25] MEDS: ATORVASTATIN 40 MG TABLET PO SCH (21:44)
[2017-03-26] MEDS: ACETAMINOPHEN 500 MG TABLET PO SCH ×4 (02:46→21:49)
[2017-03-26] MEDS: ALBUTEROL/IPRATROPIUM 3 ML NEB RESP TX SCH ×6 (03:51→23:30)
[2017-03-26 05:28] LABS: Basophils % 0.4 % (0.0-0.8); Eosinophils # 0.4 10*3/uL (0.0-0.87); Eosinophils % 3.6 % (0.00-10.9); Hemoglobin 10.4 GM/DL (14.0-18.0); Immature Granulocytes % 0.4 %; Immature Granulocytes Absolute 0.04 #; Lymphocytes # 1.7 10*3/uL (1.4-4.0); Lymphocytes % 15.2 % (21.2-54.2); Mean Corpuscular HGB Conc 33.5 GM/DL (32-36); Mean Corpuscular Hemoglobin 30 PG (27-34); Mean Corpuscular Volume 90.1 FL (87-102); Mean Platelet Volume 10.2 FL (9.6-12.0); Monocytes # 0.9 10*3/uL (0.11-0.8); Neutrophils # 7.9 10*3/uL (1.4-7.4); Neutrophils % 72.4 % (38.7-73.9); Platelet Count 205 T/CUMM (130-400); Red Blood Count 3.44 MC/CUMM (3.8-5.5); Red Cell Distribution Width 13.5 % (9.3-17.3)
[2017-03-26 05:55] LABS: Calcium 8.5 MG/DL (8.5-10.1); Magnesium 2.5 MG/DL (1.8-2.4); Osmolality,Calculated 284.4 MOS/KG (273-304); Potassium 3.6 MMOL/L (3.5-5.1)
--- NOTE | 2017-03-26 08:26 | Event Note ---
The patient is 77 years old and had a left thoracotomy and left upper lobe resection. His chest tubes have been pulled and he is doing fairly well. He does have worsening left lower lobe atelectasis and may benefit from a therapeutic bronchoscopy. He looks reasonably comfortable at present. His shortness of breath is actually better. Will plan a bronchoscope and clear his airway.
[2017-03-26] MEDS ORDERED: MIDAZOLAM 2 MG/2 ML VIAL ONE (08:32)
--- NOTE | 2017-03-26 08:32 | CT Report ---
History is left pleural effusion Comparison 01/17/2017 Several just under 1 cm nodes are present in the AP window and pretracheal region of several which are slightly more prominent than on the prior study. 1.2 cm subcarinal node is slightly more pronounced than the prior study. The again seen is a elongated the soft tissue density to the left of the aortic arch measuring 2.3 x 4.0 cm slightly more pronounced than on the prior study. There are some surrounding calcifications in this area. The there has been enlargement of a 1.6 cm left hilar node. Mediastinum is shifted to the left. There are postoperative changes in the left rib cage. There is a comminuted fracture of the left third rib with a fracture of posteriorly and a mildly comminuted the depressed fracture more anteriorly with a 2 cm depression. Overlying soft tissue caroline and soft tissue gas is present. There is a moderate hydropneumothorax on the left. There is underlying large amount of the consolidation presumably residual lung tissue as opposed to sequelae of completed pneumonectomy. Clinical correlation requested. Underlying mass could easily be obscured in this area. Small pleural calcification in the posterior right chest present. Tiny subpleural node in the right present along the major fissure. There is a small hiatal hernia present. The heart is enlarged with coronary artery calcifications Impression: 1. Moderate hydropneumothorax in the left with extensive underlying presumed consolidation. correlation with the surgical history is necessary 2. Depressed comminuted left third rib fracture anteriorly 3. Mildly enlarging mediastinal and left hilar nodes raising question of metastatic disease however reactive nodes could certainly be considered as well. 4. Other findings detailed above The CT exam was performed using one or more of the following dose reduction techniques: Automated exposure control, adjustment of the mA and/or kV according to patient size, or use of iterative reconstruction technique. PROCEDURE INTERPRETED AT [facility] DEPARTMENT OF RADIOLOGY Final Report Signed by: Dr. Bella Dickson
[2017-03-26] MEDS ORDERED: MEPERIDINE 50 MG/1 ML VIAL IM ONE (08:40)
[2017-03-26] MEDS ORDERED: PROMETHAZINE 25 MG/1 ML VIAL IM ONE (08:40)
--- NOTE | 2017-03-26 08:43 | XRay Report ---
Exam: XR chest 2V Indication: Left pleural effusion, status post chest tube removal, history of left lung cancer status post upper lobe resection Comparison study: 03/25/2017 radiograph Findings: Right lung remains clear. There is leftward shift of mediastinal structures with an air-fluid level noted at the left superior hemithorax suggestive of residual hydropneumothorax following resection of the left upper lobe. The left lower chest is opacified likely due to atelectasis and pleural fluid. Underlying consolidation and/or developing infiltrates cannot be excluded. Overlying soft tissue caroline are noted. Minimal subcutaneous emphysematous is also noted. Impression: Similar appearance of the chest with air-fluid level now noted in the left upper hemithorax suggestive of hydropneumothorax following left upper lobe resection. Right lung remains clear. PROCEDURE INTERPRETED AT [facility] DEPARTMENT OF RADIOLOGY Final Report Signed by: Osorio Stover
[2017-03-26] MEDS ORDERED: LIDOCAINE 2% VISCOUS 100 ML BOTTLE SWISH/SPIT ONE (09:00)
[2017-03-26] MEDS ORDERED: LIDOCAINE 2% 20 ML VIAL RESP TX ONE (09:00)
[2017-03-26] MEDS ORDERED: LIDOCAINE 1% 20 ML VIAL MISC INJ ONE (09:00)
[2017-03-26] MEDS ORDERED: MIDAZOLAM 2 MG/2 ML VIAL IV ONE (09:00)
--- NOTE | 2017-03-26 09:24 | Operative Note ---
Date of procedure: 03/26/17 Pre-op diagnosis: Left lower lobe atelectasis Post-op diagnosis: other (Mucous plugging left lower lobe) Procedure: The patient is a 77-year-old white man that is postop left upper lobe resection. He had his chest tube was removed yesterday. He still has atelectasis of his left lower lobe. Bronchoscope will be done to clear his airways. Timeout was performed to identify the patient. The patient is in the bronchoscopy lab. Preop: Demerol 50 mg, Phenergan 25 mg IM. Anesthesia: Versed 2 mg IVP, topical lidocaine. Procedure: The fiberoptic bronchoscope was passed orally through the vocal cords into the lungs. The bronchopulmonary segments were identified but no specimens obtained. Findings: The vocal cords have a little redness but are open. The trachea is unremarkable. The right upper lobe, right middle lobe, and right lower lobe are all open. The left distal main and left lower lobe are completely plugged with thick mucus and some blood clots. This was washed and cleared with the bronchoscope in the left lower lobe was irrigated and cleared. The left upper lobe stump looks okay. Once the left lower lobe was cleared the procedure was stopped. He tolerated the procedure well without any problems. Impression: Mucous plugging left lower lobe. Plan: We will continue respiratory therapy and increase his activity. Anesthesia: conscious sedation Surgeon / Physician: Eduardo Mera Estimated blood loss: none Specimens: none sent Condition: stable Disposition: floor Results - Labs CBC & BMP: 03/26/17 04:51 03/26/17 04:51 Discharge Plan - Discharge Medications No Action Atorvastatin Calcium [Lipitor] 40 mg PO BEDTIME Thyroid [[place] Thyroid] 60 mg PO DAILY Aspirin [Children's Aspirin] 81 mg PO BEDTIME Silodosin [Rapaflo] 8 mg PO BEDTIME Memantine [Namenda] 10 mg PO BID Meloxicam 7.5 mg PO BID Donepezil HCl 5 mg PO DAILY NIFEdipine XL TAB [Procardia Xl] 30 mg PO BEDTIME Umeclidinium Brm/Vilanterol Tr [Anoro Ellipta] 1 puff INH DAILY Irbesartan [Avapro] 150 mg PO BEDTIME - Follow Up or Referral - Forms/Instructions
[2017-03-26] MEDS: CELECOXIB 200 MG CAPSULE PO SCH ×2 (11:41→21:49)
[2017-03-26] MEDS: THYROID 60 MG TABLET PO SCH (11:41)
[2017-03-26] MEDS: DORNASE ALFA 2.5 MG/2.5 ML VIAL RESP TX SCH ×2 (11:41→20:25)
[2017-03-26] MEDS: GABAPENTIN 100 MG CAPSULE PO SCH (11:41)
[2017-03-26] MEDS: MEMANTINE 10 MG TABLET PO SCH ×2 (11:42→21:49)
[2017-03-26] MEDS: LEVOFLOXACIN 750 MG TABLET PO SCH (11:42)
[2017-03-26] MEDS: DONEPEZIL 5 MG TABLET PO SCH (11:43)
[2017-03-26] MEDS: METOPROLOL TARTRATE 25 MG TABLET PO SCH ×2 (11:43→21:49)
[2017-03-26] MEDS: MELOXICAM 7.5 MG TABLET PO SCH ×2 (11:46→21:49)
[2017-03-26] MEDS: VILANTEROL TR INH SCH (11:46)
[2017-03-26] MEDS: PANTOPRAZOLE 40 MG VIAL IV SCH (11:46)
[2017-03-26] MEDS: UMECLIDINIUM BRM INH SCH (11:46)
[2017-03-26] MEDS ORDERED: ACETYLCYSTEINE 20% 800 MG/4 ML VIAL RESP TX ONE (12:29)
--- NOTE | 2017-03-26 12:35 | XRay Report ---
History is post bronchoscopy Chest one view 03/26/2017 at 11:09 AM Comparison earlier the same day Heart remains enlarged with pacemaker present. The Prior air-fluid level in the left chest is less pronounced with some aerated lung now felt to be present. Consolidation obscuring lower two thirds the left chest with suspected component of pleural fluid again seen. No new right lung infiltrates identified. Impression: 1. Prior large air-fluid level in the left the pleural space not seen on the current study although it could be obscured by semirecumbent positioning. Slight improved aeration on the left. PROCEDURE INTERPRETED AT [facility] DEPARTMENT OF RADIOLOGY Final Report Signed by: Dr. Bella Dickson
[2017-03-26] MEDS: ENOXAPARIN 40 MG/0.4 ML SYRINGE SUBCUT SCH (13:12)
--- NOTE | 2017-03-26 13:13 | Cardiothoracic Progress Note ---
Assessment and Plan (1) Mass of upper lobe of left lung Problem details: enlarging soft tissue lesion most likely malignancy Status: Acute Assessment and plan: Postoperative day 5 status post left upper lobectomy with mediastinal lymph node dissection. The patient has significant improvement in his symptoms. His pain is well controlled. However I saw on x-ray today that the left lower lobe continues to have consolidation. I obtained a CT scan without contrast which showed complete collapse of the left lower lobe due to mucous plug. Dr. Mera graciously took the patient to the cardiopulmonary lab and a bronchoscopy was performed with suctioning of the mucous plug. Details of this is our as dictated by Dr. Mera. Postprocedure chest x-ray showed clear improvement and increased radiation of the left lower lobe. The patient continues to be asymptomatic and active. I anticipate discharge to rehab tomorrow. Current Visit: No Exam (Progress Note) - Constitutional Vitals: Period Temp Pulse Resp BP Sys/Potter Pulse Ox Last 24 Hr 96.3 F-98.4 F 59-94 14-23 103-156/55-75 89-99 Result/EKG - Labs CBC & BMP: 03/26/17 04:51 03/26/17 04:51 Labs: Laboratory Results - last 24 hr 03/26/17 03/26/17 04:51 04:51 WBC 11.0 RBC 3.44 L Hgb 10.4 L Hct 31.0 L MCV 90.1 MCH 30 MCHC 33.5 RDW 13.5 Plt Count 205 MPV 10.2 Neut % (Auto) 72.4 Lymph % (Auto) 15.2 L [place] % (Auto) 8.0 Eos % (Auto) 3.6 Baso % (Auto) 0.4 Neut # (Auto) 7.9 H Lymph # (Auto) 1.7 [place] # (Auto) 0.9 H Eos # (Auto) 0.4 Baso # (Auto) 0.0 Immature Gran % 0.4 Nucleated RBC % 0.0 Immature Gran # 0.04 Nucleated RBCs # 0.00 Immature Plt Fraction 0.0 Sodium 140 Potassium 3.6 Chloride 103 Carbon Dioxide 30 Anion Gap 10.6 BUN 29 H Creatinine 1.10 GFR Calculation 73 BUN/Creatinine Ratio 26.00 H Glucose 99 Calculated Osmolality 284.4 Calcium 8.5 Magnesium 2.5 H Quality Measures - VTE Contraindication to Pharmacological VTE Prophylaxis: Active Bleeding
[2017-03-26] MEDS ORDERED: FUROSEMIDE 40 MG/4 ML VIAL IV ONE (19:18)
[2017-03-26 20:05] LABS: Apearance,Urine Slightly Hazy (Clear); Bilirubin,Urine Negative (Negative); Blood, Urine Negative (Negative); Glucose,Urine (UA) Negative (Negative); Hyaline Casts,Urine 11 /LPF (0-3); Ketones,Urine Negative (Negative); Mucus,Urine Occasional /LPF (Occasional); Nitrite,Urine Negative (Negative); Protein,Urine Negative; RBC,Urine 1 /HPF (0-4); Squamous Epithelial Cell,Urine Occasional /HPF (0-10); Urine Color Yellow (Yellow); Urine Urobilinogen < 2.0 EU/DL (0.2-1.0); WBC,Urine 2 /HPF (0-6)
[2017-03-26] MEDS: IRBESARTAN 150 MG TABLET PO SCH (21:49)
[2017-03-26] MEDS: SILODOSIN 8 MG CAPSULE PO SCH (21:49)
[2017-03-26] MEDS: ASPIRIN CHEW 81 MG TABLET PO SCH (21:49)
[2017-03-26] MEDS: ATORVASTATIN 40 MG TABLET PO SCH (21:49)
[2017-03-27] MEDS: ACETAMINOPHEN 500 MG TABLET PO SCH ×4 (02:07→21:08)
[2017-03-27] MEDS: ALBUTEROL/IPRATROPIUM 3 ML NEB RESP TX SCH ×6 (02:45→23:58)
[2017-03-27 05:02] LABS: Basophils % 0.3 % (0.0-0.8); Eosinophils # 0.4 10*3/uL (0.0-0.87); Eosinophils % 3.3 % (0.00-10.9); Hematocrit 28.3 VOL% (42.0-52.0); Hemoglobin 9.5 GM/DL (14.0-18.0); Immature Granulocytes % 0.6 %; Immature Granulocytes Absolute 0.07 #; Lymphocytes # 1.7 10*3/uL (1.4-4.0); Lymphocytes % 13.4 % (21.2-54.2); Mean Corpuscular HGB Conc 33.6 GM/DL (32-36); Mean Corpuscular Hemoglobin 30 PG (27-34); Mean Corpuscular Volume 90.4 FL (87-102); Mean Platelet Volume 10.2 FL (9.6-12.0); Monocytes # 0.8 10*3/uL (0.11-0.8); Monocytes % 6.3 % (1.7-12.7); Neutrophils # 9.3 10*3/uL (1.4-7.4); Neutrophils % 76.1 % (38.7-73.9); Platelet Count 196 T/CUMM (130-400); Red Blood Count 3.13 MC/CUMM (3.8-5.5); Red Cell Distribution Width 13.8 % (9.3-17.3); White Blood Count 12.3 T/CUMM (4-12)
[2017-03-27 05:25] LABS: Calcium 8.2 MG/DL (8.5-10.1); Hypochromasia 1+; Magnesium 2.3 MG/DL (1.8-2.4); Osmolality,Calculated 280.8 MOS/KG (273-304); Ovalocytes Slight; Platelet Estimate Normal; Potassium 3.4 MMOL/L (3.5-5.1)
[2017-03-27 05:26] LABS: Giant Platelets Few; Microcytosis Slight
[2017-03-27] MEDS: DORNASE ALFA 2.5 MG/2.5 ML VIAL RESP TX SCH ×2 (07:18→19:59)
[2017-03-27] MEDS ORDERED: POTASSIUM CHLORIDE 20 MEQ TABLET PO ONE (07:44)
[2017-03-27] MEDS: PANTOPRAZOLE 40 MG VIAL IV SCH (08:26)
[2017-03-27] MEDS: MELOXICAM 7.5 MG TABLET PO SCH ×2 (08:27→21:08)
[2017-03-27] MEDS: THYROID 60 MG TABLET PO SCH (08:27)
--- NOTE | 2017-03-27 08:27 | XRay Report ---
XR chest 2V Indication: Left pleural effusion Comparison: 26 March 2017 Findings: The heart and mediastinum are similar in size and configuration. Pacemaker device is unchanged in position. Left pleural effusion is present with increased left lower lung density and air-fluid level seen in the left upper hemithorax. The pulmonary vascularity is normal in caliber. No other lung infiltrates, effusions, pneumothorax or other abnormality is demonstrated. Impression: No significant change when accounting for positional differences. PROCEDURE INTERPRETED AT [facility] DEPARTMENT OF RADIOLOGY Final Report Signed by: Dr. Francisco Moscoso
[2017-03-27] MEDS: DONEPEZIL 5 MG TABLET PO SCH (08:28)
[2017-03-27] MEDS: METOPROLOL TARTRATE 25 MG TABLET PO SCH (08:29)
[2017-03-27] MEDS: MEMANTINE 10 MG TABLET PO SCH ×2 (08:29→21:08)
[2017-03-27] MEDS: CELECOXIB 200 MG CAPSULE PO SCH ×2 (08:29→21:08)
[2017-03-27] MEDS: LEVOFLOXACIN 750 MG TABLET PO SCH (08:29)
[2017-03-27] MEDS ORDERED: SODIUM CHLORIDE 0.9% 1,000 ML IV ONE (11:46)
[2017-03-27] MEDS: ENOXAPARIN 40 MG/0.4 ML SYRINGE SUBCUT SCH (15:07)
[2017-03-27] MEDS ORDERED: SODIUM CHLORIDE 0.9% 1,000 ML IV SCH (15:30)
[2017-03-27] MEDS: ASPIRIN CHEW 81 MG TABLET PO SCH (21:08)
[2017-03-27] MEDS: ATORVASTATIN 40 MG TABLET PO SCH (21:08)
[2017-03-27] MEDS: SILODOSIN 8 MG CAPSULE PO SCH (21:08)
[2017-03-27] MEDS: IRBESARTAN 150 MG TABLET PO SCH (21:08)
[2017-03-28] MEDS: ACETAMINOPHEN 500 MG TABLET PO SCH ×4 (01:35→20:50)
[2017-03-28] MEDS: ALBUTEROL/IPRATROPIUM 3 ML NEB RESP TX SCH ×6 (04:07→23:58)
[2017-03-28 05:52] LABS: Basophils % 0.2 % (0.0-0.8); Eosinophils # 0.4 10*3/uL (0.0-0.87); Eosinophils % 3.6 % (0.00-10.9); Hematocrit 25.8 VOL% (42.0-52.0); Hemoglobin 8.5 GM/DL (14.0-18.0); Immature Granulocytes % 0.7 %; Immature Granulocytes Absolute 0.07 #; Lymphocytes # 1.4 10*3/uL (1.4-4.0); Lymphocytes % 13.8 % (21.2-54.2); Mean Corpuscular HGB Conc 32.9 GM/DL (32-36); Mean Corpuscular Hemoglobin 30 PG (27-34); Mean Corpuscular Volume 91.5 FL (87-102); Mean Platelet Volume 10.3 FL (9.6-12.0); Monocytes # 0.7 10*3/uL (0.11-0.8); Monocytes % 6.9 % (1.7-12.7); Neutrophils # 7.3 10*3/uL (1.4-7.4); Neutrophils % 74.8 % (38.7-73.9); Platelet Count 211 T/CUMM (130-400); Red Blood Count 2.82 MC/CUMM (3.8-5.5); Red Cell Distribution Width 13.8 % (9.3-17.3); White Blood Count 9.8 T/CUMM (4-12)
[2017-03-28 06:33] LABS: Calcium 8.1 MG/DL (8.5-10.1); Magnesium 2.5 MG/DL (1.8-2.4); Potassium 3.4 MMOL/L (3.5-5.1)
--- NOTE | 2017-03-28 07:29 | Discharge Summary ---
Hospital Course - Hospital Course Hospital Course: The patient came into the preop area was evaluated and was noted to be fit for surgery. The patient was taken to the OR and the left upper lobectomy with mediastinal lymph node dissection was performed. Details of this procedure is dictated in a separate note. The patient was admitted to the ICU for close observation. Postoperative day 1 the patient was doing well he had minimal air leak, he had around 600 cc serosanguineous chest tube output. He was severely hypertensive which prompted me to keep him in the intensive care unit. Postoperative day 2 his blood pressure improved, I transferred him to telemetry. The chest tubes were taken off suction. Again minimal air leak. The lung was completely inflated on the left side. Postoperative day 3 and 4 the patient had some difficulty with pain control, he would avoid coughing or deep breathing due to pain. On chest x-ray I noted that he has atelectasis of his left lower lobe. I obtained a CT scan which showed no pleural effusion however his left lower lobe was collapsed due to mucous plug. I called Dr. Mera who graciously performed a bronchoscopy with bronchoalveolar lavage with suctioning and cleaning of his left main bronchus and left lower lobe. Details of this procedure is dictated in a separate note. After that the patient significantly improved. His physical activity improved. He tolerated his diet. His pain was well-controlled. On postoperative day 7 the patient was ready for discharge to rehab. - Time spent with patient Time with patient DS: Greater than 30 minutes Diagnosis - Discharge Diagnosis (1) Mass of upper lobe of left lung Status: Acute Discharge Plan - Discharge Data Disposition: Disch/Xfer-Ip Rehab Fac Condition at Discharge: Stable Discharge Diet: advance to your usual diet Activity: resume usual activities as tolerated Hygiene: no restrictions, may shower Weight Bearing at Discharge: full weight bearing Driving: no restrictions Contact your physician if you experience:: fever over 101, Difficulty voiding, Nausea/Vomiting, Shortness of breath, Bleeding, pain uncontrolled by pain medications - Discharge Medications New Albuterol/Ipratropium Neb [Duoneb] 3 ml RESP TX RT Q4H Celecoxib [Celebrex] 200 mg PO BID #60 capsule Dornase Raheem [Pulmozyme] 2.5 mg RESP TX RT Q12H vial NIFEdipine XL TAB [Procardia Xl] 30 mg PO DAILY tablet traMADol TAB [Ultram] 50 mg PO Q6H PRN #60 tablet PRN Reason: Pain Mild (1-3) Acetaminophen Tab [Tylenol Tab] 1,000 mg PO Q6H #60 tablet Continue Atorvastatin Calcium [Lipitor] 40 mg PO BEDTIME Thyroid [[place] Thyroid] 60 mg PO DAILY Aspirin [Children's Aspirin] 81 mg PO BEDTIME Silodosin [Rapaflo] 8 mg PO BEDTIME Memantine [Namenda] 10 mg PO BID Donepezil HCl 5 mg PO DAILY Umeclidinium Brm/Vilanterol Tr [Anoro Ellipta] 1 puff INH DAILY Irbesartan [Avapro] 150 mg PO BEDTIME Discontinued Meloxicam 7.5 mg PO BID NIFEdipine XL TAB [Procardia Xl] 30 mg PO BEDTIME - Follow Up or Referral - Forms/Instructions Exam - Constitutional Vitals: Period Temp Pulse Resp BP Sys/Potter Pulse Ox Last 24 Hr 97.3 F-98.4 F 70-89 15-20 90-117/41-59 90-99 Discharge Results Procedures and tests throughout hospitalization: Pending Orders 03/21/17 06:15 FFP [Fresh Frozen Plasma] Stat Red Blood Cells Leuko Red Stat Single Donor Platelets Stat Type and Screen Stat 03/28/17 04:00 XR chest 2V IN AM 03/29/17 04:00 XR chest 2V IN AM Basic Metabolic Panel w/Mg IN AM Comp Blood Count Auto Diff IN AM 03/30/17 04:00 XR chest 2V IN AM Basic Metabolic Panel w/Mg IN AM Comp Blood Count Auto Diff IN AM Labs on day of discharge: Labs from last 24 hours 03/28/17 03/28/17 04:48 04:48 WBC 9.8 RBC 2.82 L Hgb 8.5 L Hct 25.8 L MCV 91.5 MCH 30 MCHC 32.9 RDW 13.8 Plt Count 211 MPV 10.3 Neut % (Auto) 74.8 H Lymph % (Auto) 13.8 L [place] % (Auto) 6.9 Eos % (Auto) 3.6 Baso % (Auto) 0.2 Neut # (Auto) 7.3 Lymph # (Auto) 1.4 [place] # (Auto) 0.7 Eos # (Auto) 0.4 Baso # (Auto) 0.0 Immature Gran % 0.7 Nucleated RBC % 0.0 Immature Gran # 0.07 Nucleated RBCs # 0.00 Immature Plt Fraction 0.0 Sodium 143 Potassium 3.4 L Chloride 107 Carbon Dioxide 28 Anion Gap 11.4 BUN 27 H Creatinine 1.20 GFR Calculation 66 BUN/Creatinine Ratio 22.00 H Glucose 107 H Calculated Osmolality 289.0 Calcium 8.1 L Magnesium 2.5 H DS: Provider Date of admission: 03/21/17 05:57 Primary care physician: Augustin Barba I Attending physician on admission: Flory Salgado Consults: 03/21/17 16:06 Consult to Pastoral Services [CONS] Routine Comment: Pastoral Screen: Request Cold Header Operator Visit Pastoral Screen Source of Request: Family 03/21/17 17:59 Consult to Case Mgmt/Social Srvs [CONS] Routine Reason for Case Mgmt/Social Srvs: Other Consult Comment: Patient's requested to speak to case management assistant 03/22/17 08:35 Consult to Occupational Therapy [CONS] Routine Reason for Occupational Therapy: Evaluate and Treat Weakness Start Therapy: Today Consult to Physical Therapy [CONS] Routine Reason for Physical Therapy: Evaluate and Treat Weakness Start Therapy: Today 03/22/17 12:38 Consult to Physician [CONS] Routine Comment: BP med energy management specialist Provider: Geo Olivares Consulting Provider Notified: Yes When should Consulting Provider be notified: Now Consult to Specialist Group: Hospitalist Person Notified: Date Notified: 03/22/17 Time Notified: 12:50 03/23/17 15:31 Consult to Case Mgmt/Social Srvs [CONS] Routine Reason for Case Mgmt/Social Srvs: Discharge Planning Consult Comment: [facility] Consult to Physical Therapy [CONS] Routine Reason for Physical Therapy: Ambulation Discharging clinician: Flory Salgado Expected date of discharge: 03/28/17
--- NOTE | 2017-03-28 07:31 | XRay Report ---
XR chest 2V Indication: Pleural effusion Comparison: 27 March 2017 Findings: The heart and mediastinum are similar in size and configuration. Pacemaker device is unchanged in position. The pulmonary vascularity is normal in caliber. Left lung density and effusion are improved when compared to previous study. There is a decreased amount of air in the left hemithorax. No other lung infiltrates, effusions, pneumothorax or other abnormality is demonstrated. Impression: Decreasing left hydropneumothorax when compared to previous exam. PROCEDURE INTERPRETED AT [facility] DEPARTMENT OF RADIOLOGY Final Report Signed by: Dr. Francisco Moscoso
[2017-03-28] MEDS: DORNASE ALFA 2.5 MG/2.5 ML VIAL RESP TX SCH ×2 (07:38→19:47)
[2017-03-28] MEDS: CELECOXIB 200 MG CAPSULE PO SCH ×2 (09:28→20:50)
[2017-03-28] MEDS: MELOXICAM 7.5 MG TABLET PO SCH ×2 (09:29→20:56)
[2017-03-28] MEDS: LEVOFLOXACIN 750 MG TABLET PO SCH (09:29)
[2017-03-28] MEDS: THYROID 60 MG TABLET PO SCH (09:29)
[2017-03-28] MEDS: MEMANTINE 10 MG TABLET PO SCH ×2 (09:29→20:50)
[2017-03-28] MEDS: DONEPEZIL 5 MG TABLET PO SCH (09:29)
[2017-03-28] MEDS: PANTOPRAZOLE 40 MG VIAL IV SCH ×2 (09:30→09:33)
[2017-03-28] MEDS: ENOXAPARIN 40 MG/0.4 ML SYRINGE SUBCUT SCH (14:30)
[2017-03-28] MEDS: ATORVASTATIN 40 MG TABLET PO SCH (20:50)
[2017-03-28] MEDS: ASPIRIN CHEW 81 MG TABLET PO SCH (20:50)
[2017-03-28] MEDS: IRBESARTAN 150 MG TABLET PO SCH (20:50)
[2017-03-28] MEDS: SILODOSIN 8 MG CAPSULE PO SCH (20:56)
[2017-03-28] MEDS: VILANTEROL TR INH SCH (23:58)
[2017-03-28] MEDS: UMECLIDINIUM BRM INH SCH (23:58)
[2017-03-29] MEDS: ACETAMINOPHEN 500 MG TABLET PO SCH ×2 (02:32→09:09)
[2017-03-29] MEDS: ALBUTEROL/IPRATROPIUM 3 ML NEB RESP TX SCH ×2 (02:42→07:42)
[2017-03-29] MEDS: DORNASE ALFA 2.5 MG/2.5 ML VIAL RESP TX SCH (07:43)
[2017-03-29 08:10] VITALS: BP 157/70
[2017-03-29] MEDS: CELECOXIB 200 MG CAPSULE PO SCH (09:10)
[2017-03-29] MEDS: THYROID 60 MG TABLET PO SCH (09:10)
[2017-03-29] MEDS: DONEPEZIL 5 MG TABLET PO SCH (09:10)
[2017-03-29] MEDS: LEVOFLOXACIN 750 MG TABLET PO SCH (09:10)
[2017-03-29] MEDS: MELOXICAM 7.5 MG TABLET PO SCH (09:10)
[2017-03-29] MEDS: PANTOPRAZOLE 40 MG VIAL IV SCH (09:10)
[2017-03-29] MEDS: MEMANTINE 10 MG TABLET PO SCH (09:10)
[2017-03-29] MEDS: UMECLIDINIUM BRM INH SCH (09:11)
[2017-03-29] MEDS: VILANTEROL TR INH SCH (09:11)
== END 2017-03-29 10:56 | DRG 164 ==
LOC: N.SDSINP 03-21 05:57 → N.ICU 03-21 15:19 → N.TELES 03-23 13:51
PROVIDERS: ADMIT Thoracic Surgery (Cardiothoracic Vascular Surgery); ATTEND Thoracic Surgery (Cardiothoracic Vascular Surgery)

== ENCOUNTER 2017-07-27 22:26 | Inpatient (IN) ==
[2017-07-27] MEDS ORDERED: LORazepam 1 MG TABLET PO STA (23:35)
[2017-07-27] MEDS ORDERED: ASPIRIN 325 MG TABLET PO STA (23:35)
[2017-07-27] MEDS ORDERED: ASPIRIN 325 MG TABLET ONE (23:40)
[2017-07-27] MEDS ORDERED: LORazepam 1 MG TABLET ONE (23:40)
[2017-07-28 00:08] LABS: Basophils % 0.6 % (0.0-0.8); Eosinophils % 0.6 % (0.00-10.9); Hematocrit 26.3 VOL% (42.0-52.0); Hemoglobin 8.2 GM/DL (14.0-18.0); Immature Granulocytes % 0.5 %; Immature Granulocytes Absolute 0.03 #; Lymphocytes % 15.2 % (21.2-54.2); Mean Corpuscular HGB Conc 31.2 GM/DL (32-36); Mean Corpuscular Hemoglobin 29 PG (27-34); Mean Corpuscular Volume 93.9 FL (87-102); Mean Platelet Volume 10.9 FL (9.6-12.0); Monocytes # 1.1 10*3/uL (0.11-0.8); Monocytes % 17.3 % (1.7-12.7); Neutrophils # 4.3 10*3/uL (1.4-7.4); Neutrophils % 65.8 % (38.7-73.9); Platelet Count 155 T/CUMM (130-400); Red Cell Distribution Width 20.8 % (9.3-17.3); White Blood Count 6.5 T/CUMM (4-12)
[2017-07-28 00:30] LABS: Alanine Aminotransferase 14 U/L (16-61); Albumin 2.8 G/DL (3.4-5.0); Alkaline Phosphatase 144 U/L (45-117); Aspartate Amino Transferase 23 U/L (0-37); Blood Urea Nitrogen 11 MG/DL (7-18); Calcium 8.3 MG/DL (8.5-10.1); Glucose 94 MG/DL (74-106); Osmolality,Calculated 277.4 MOS/KG (273-304); Potassium 3.3 MMOL/L (3.5-5.1); Sodium 140 MMOL/L (136-145); Total Protein 6.2 G/DL (6.4-8.3)
[2017-07-28 00:34] LABS: Troponin I Only 0.115 NG/ML (0.00-0.045)
[2017-07-28 00:58] LABS: Band Neutrophils 3 % (0-10); Lymphocytes 17 % (20-55); Segmented Neutrophils 67 % (50-85); Total Cells Counted 100
[2017-07-28] MEDS ORDERED: ONDANSETRON 4 MG/2 ML VIAL IV PRN (03:00)
[2017-07-28] MEDS ORDERED: THYROID 60 MG TABLET PO SCH ×2 (06:00→09:00)
[2017-07-28 07:55] LABS: Basophils % 0.6 % (0.0-0.8); Eosinophils # 0.1 10*3/uL (0.0-0.87); Eosinophils % 1.2 % (0.00-10.9); Hematocrit 26.4 VOL% (42.0-52.0); Hemoglobin 8.1 GM/DL (14.0-18.0); Immature Granulocytes % 0.4 %; Immature Granulocytes Absolute 0.02 #; Lymphocytes # 1.3 10*3/uL (1.4-4.0); Lymphocytes % 25.9 % (21.2-54.2); Mean Corpuscular HGB Conc 30.7 GM/DL (32-36); Mean Corpuscular Hemoglobin 29 PG (27-34); Mean Corpuscular Volume 95.3 FL (87-102); Mean Platelet Volume 10.6 FL (9.6-12.0); Monocytes # 0.9 10*3/uL (0.11-0.8); Monocytes % 18.9 % (1.7-12.7); Neutrophils # 2.6 10*3/uL (1.4-7.4); Platelet Count 158 T/CUMM (130-400); Red Blood Count 2.77 MC/CUMM (3.8-5.5); Red Cell Distribution Width 21.2 % (9.3-17.3); White Blood Count 4.8 T/CUMM (4-12)
[2017-07-28] MEDS ORDERED: FUROSEMIDE 40 MG/4 ML VIAL IV SCH (08:00)
[2017-07-28 08:01] LABS: Calcium 8.4 MG/DL (8.5-10.1); Potassium 3.5 MMOL/L (3.5-5.1)
[2017-07-28 08:27] LABS: Eosinophils 1 % (0-10); Lymphocytes 24 % (20-55); Segmented Neutrophils 63 % (50-85); Total Cells Counted 100
[2017-07-28 08:28] LABS: Acanthocytes Few; Hypochromasia 1+; Microcytosis Slight; Ovalocytes Slight; Platelet Estimate Adequate
[2017-07-28] MEDS ORDERED: FLUDROCORTISONE 0.1 MG TABLET PO SCH (09:00)
[2017-07-28] MEDS ORDERED: ASPIRIN 325 MG TABLET PO SCH (09:00)
[2017-07-28] MEDS ORDERED: MELOXICAM 7.5 MG TABLET PO SCH (09:00)
[2017-07-28] MEDS ORDERED: PANTOPRAZOLE 40 MG TABLET PO SCH (09:00)
[2017-07-28] MEDS ORDERED: NITROGLYCERIN 2% OINT 1 INCH/GM PACK TOP SCH (09:00)
[2017-07-28] MEDS ORDERED: FOLIC ACID 1 MG TABLET PO SCH ×2 (09:00→09:30)
[2017-07-28 11:59] VITALS: BP 140/60
[2017-07-28] MEDS ORDERED: SILODOSIN 8 MG CAPSULE PO SCH ×2 (17:00→21:00)
[2017-07-28] MEDS ORDERED: IRBESARTAN 150 MG TABLET PO SCH (21:00)
[2017-07-28] MEDS ORDERED: ASPIRIN CHEW 81 MG TABLET PO SCH (21:00)
[2017-07-28] MEDS ORDERED: ATORVASTATIN 40 MG TABLET PO SCH (21:00)
== END 2017-07-28 14:45 | disposition hospice, home (50) | DRG 293 ==
LOC: EDBD → EDUNIT# → N.ED 22:26 → N.EDINP 07-28 00:58 → N.TELEN 07-28 02:18
PROVIDERS: ADMIT Family Medicine; ATTEND Family Medicine